=== PATIENT | female | born 1945 | race Native Hawaiian/Other Pacific Islander ===

== ENCOUNTER 2022-09-10 23:26 | Emergency (ER) | payer OTHER ==
[~2022-09-10] VITALS: Ht 167.6 cm; Wt 118.8 kg
[2022-09-10 23:26] VITALS: BP 185/82; TEMP 97.9
[2022-09-10 23:53] LABS: PLATELET COUNT 246 K/uL (152-353)
[2022-09-11 00:08] LABS: POTASSIUM 3.6 mmol/L (3.6-5.2)
[2022-09-11] MEDS ORDERED: ARIPIPRAZOLE10 MG PO (08:22)
[2022-09-11] MEDS ORDERED: COZAAR25 MG PO (08:23)
[2022-09-11] MEDS ORDERED: BAYER ASPIRIN E81 MG PO (08:23)
[2022-09-11] MEDS ORDERED: AMLODIPINE PO (08:24)
[2022-09-11] MEDS ORDERED: PROPRANOLOL ER PO (08:26)
[2022-09-11] MEDS ORDERED: RISP0.5T2 PO (08:27)
[2022-09-17] MEDS ORDERED: NORVASC 5MG TAB PO (09:44)
[2022-09-17] MEDS ORDERED: CHOL100034 PO (09:45)
[2022-09-17] MEDS ORDERED: LOSA50TA PO (09:45)
[2022-09-17] MEDS ORDERED: MAGNSUS68 PO (09:45)
[2022-09-17] MEDS ORDERED: ENTERIC COATED325 MG PO (09:45)
[2022-09-17] MEDS ORDERED: PROP60CA9 PO (09:46)
[2022-09-17] MEDS ORDERED: OLAN2.5T2 PO (09:46)
== END 2022-09-11 02:15 | disposition still patient (30) ==
LOC: ED 23:26
PROVIDERS: Emergency Medicine
DX: F31.9 Bipolar disorder, unspecified (principal); F20.9 Schizophrenia, unspecified; Z02.79 Encounter for issue of other medical certificate
CPT/HCPCS: 80053; 81002; 85027; 87635; 93005; 99283; U0003